=== PATIENT | male | born 1955 | race Caucasian/White ===

== ENCOUNTER 2018-12-03 10:34 | Emergency (ER) | payer MEDICARE, MEDICAID ==
[~2018-12-03] VITALS: Ht 172.7 cm; Wt 77.1 kg
[2018-12-03 10:40] VITALS: BP 115/78
[2018-12-03] MEDS ORDERED: DEXAMETHASONE 4 MG TABLET ONE (11:28)
[2018-12-03] MEDS ORDERED: DEXAMETHASONE 4 MG TABLET PO ONE (11:30)
[2018-12-03] MEDS ORDERED: DEXAMETHASONE 4 MG/ML, 1ML PO ONE (11:30)
== END 2018-12-03 11:34 | disposition home or self-care (01) ==
LOC: ED 11:28
DX: J02.8 Acute pharyngitis due to other specified organisms (principal); B97.89 Other viral agents as the cause of diseases classified elsewhere; F17.200 Nicotine dependence, unspecified, uncomplicated
CPT/HCPCS: 71046; 99283

== ENCOUNTER → 2020-09-07 | Outpatient (CLI) | payer BC, MEDICAID | END | disposition home or self-care (01) | LOC: CFH 16:08 | PROVIDERS: ATTEND Internal Medicine Cardiovascular Disease | DX: I34.0 Nonrheumatic mitral (valve) insufficiency (principal); I10 Essential (primary) hypertension | CPT/HCPCS: 93306; 93356 ==

== ENCOUNTER 2020-09-23 07:32 | Outpatient (CLI) | payer MEDICARE, MEDICAID ==
[~2020-09-23 07:32] MED LIST: REGADENOSON 0.4 MG/5 ML SYRINGE ONE
[2020-09-23] MEDS ORDERED: REGADENOSON 0.4 MG/5 ML SYRINGE ONE (09:33)
== END 2020-09-23 23:59 | disposition home or self-care (01) ==
LOC: CFH 07:32
PROVIDERS: ATTEND Internal Medicine Cardiovascular Disease
DX: I10 Essential (primary) hypertension (principal); R07.9 Chest pain, unspecified; I25.10 Atherosclerotic heart disease of native coronary artery without angina pectoris
CPT/HCPCS: 78452; 93017; A9502; J2785